=== PATIENT | male | born 1995 | race Two or more races ===

== ENCOUNTER 2021-04-07 17:15 | Emergency (ER) | payer BC, OTHER ==
[~2021-04-07] VITALS: Ht 180.3 cm; Wt 85.3 kg
[2021-04-07] MEDS ORDERED: IBUPROFEN 600 MG TAB PO ONE (17:43)
[2021-04-07] MEDS ORDERED: IBUPROFEN 600 MG TAB ONE (17:58)
[2021-04-07] MEDS ORDERED: IBUPROFEN600 MG PO (18:02)
[2021-04-07] MEDS ORDERED: METHOCARBAMOL750 MG PO (18:04)
[2021-04-07] MEDS ORDERED: ULTRAM 50MG50 MG PO (18:05)
== END 2021-04-07 18:54 | disposition home or self-care (01) ==
LOC: FSED 17:38
DX: S39.012A Strain of muscle, fascia and tendon of lower back, initial encounter (principal); X50.0XXA Overexertion from strenuous movement or load, initial encounter; Y93.B3 Activity, free weights; Y92.39 Other specified sports and athletic area as the place of occurrence of the external cause
CPT/HCPCS: 72100; 99283